=== PATIENT | male | born 1960 | race Caucasian/White ===

== ENCOUNTER 2016-12-28 00:17 | Emergency (ER) | payer MEDICAID ==
[~2016-12-28] VITALS: Ht 172.7 cm; Wt 62.3 kg
[2016-12-28 00:21] VITALS: BP 178/111
[2016-12-28] MEDS ORDERED: CYCLOBENZAPRINE 10 MG TABLET ONE (01:09)
[2016-12-28] MEDS ORDERED: KETOROLAC 30 MG/1 ML ONE (01:09)
[2016-12-28] MEDS ORDERED: CYCLOBENZAPRINE 10 MG TABLET PO SCH (01:30)
[2016-12-28] MEDS ORDERED: KETOROLAC 30 MG/1 ML IM ONE (01:30)
== END 2016-12-28 01:38 | disposition home or self-care (01) ==
LOC: ED 00:30
DX: S16.1XXA Strain of muscle, fascia and tendon at neck level, initial encounter (principal); S46.911A Strain of unspecified muscle, fascia and tendon at shoulder and upper arm level, right arm, initial encounter; S29.012A Strain of muscle and tendon of back wall of thorax, initial encounter; I10 Essential (primary) hypertension; F17.200 Nicotine dependence, unspecified, uncomplicated; X58.XXXA Exposure to other specified factors, initial encounter; Y93.89 Activity, other specified; Y92.89 Other specified places as the place of occurrence of the external cause; Y99.8 Other external cause status
CPT/HCPCS: 96372; 99283; J1885

== ENCOUNTER 2017-04-13 01:46 | Emergency (ER) | payer MEDICAID ==
[~2017-04-13] VITALS: BP 148/100; Ht 162.6 cm; Wt 65.8 kg
== END 2017-04-13 02:53 | disposition home or self-care (01) ==
LOC: ED 02:47
DX: R20.2 Paresthesia of skin (principal); I10 Essential (primary) hypertension; F15.10 Other stimulant abuse, uncomplicated; F41.9 Anxiety disorder, unspecified
CPT/HCPCS: 99281

== ENCOUNTER 2017-07-08 23:53 | Emergency (ER) | payer MEDICAID ==
[~2017-07-08] VITALS: Ht 162.6 cm; Wt 59.7 kg
[2017-07-09] MEDS ORDERED: ONDANSETRON ODT 4 MG ONE (00:14)
[2017-07-09] MEDS ORDERED: MAALOX/HYOSCYAMINE/LIDOCAINE 45 ML BTL ONE (00:14)
[2017-07-09 00:29] LABS: BASOPHILS # (AUTO) 0.02 x10^3/uL (0-0.1); BASOPHILS % (AUTO) 0 % (0-1); EOSINOPHILS # (AUTO) 0.17 x10^3/uL (0-0.4); EOSINOPHILS % (AUTO) 3 % (1-7); LYMPHOCYTES # (AUTO) 1.46 x10^3/uL (1-3.4); LYMPHOCYTES % (AUTO) 28 % (22-44); MD NO; MEAN CORPUSCULAR HGB CONC 33.9 g/dL (33.2-36.2); MEAN CORPUSCULAR VOLUME 97.5 fL (81-97); MEAN PLATELET VOLUME 9.4 fL (7.4-10.4); MONOCYTES # (AUTO) 0.54 x10^3/uL (0.2-0.8); MONOCYTES % (AUTO) 10 % (2-9); NEUTROPHILS # (AUTO) 3.08 x10^3/uL (1.8-6.8); NEUTROPHILS % (AUTO) 59 % (42-75); PLATELET COUNT 196 x10^3/uL (130-400); RED BLOOD COUNT 4.38 x10^6/uL (4.38-5.82); RED CELL DISTRIBUTION WIDTH 13.3 % (9.4-14.8)
[2017-07-09] MEDS ORDERED: ONDANSETRON ODT 4 MG PO ONE (00:30)
[2017-07-09] MEDS ORDERED: MAALOX/HYOSCYAMINE/LIDOCAINE 45 ML BTL PO ONE (00:30)
[2017-07-09 00:35] LABS: ALANINE AMINOTRANSFERASE 54 U/L (12-78); ALBUMIN 2.8 g/dL (3.4-5.0); ANION GAP 7 mmol/L (5-15); CALCIUM 8.7 mg/dL (8.5-10.1); CHLORIDE 109 mmol/L (98-107); CREATININE 0.99 mg/dL (0.7-1.3)
[2017-07-09 00:38] LABS: ALKALINE PHOSPHATASE 64 U/L (45-117); BILIRUBIN,TOTAL 0.6 mg/dL (0.2-1.0); TOTAL PROTEIN 6.7 g/dL (6.4-8.2)
[2017-07-09 01:39] VITALS: BP 131/78
== END 2017-07-09 01:46 | disposition home or self-care (01) ==
LOC: ED 23:59
DX: K52.29 Other allergic and dietetic gastroenteritis and colitis (principal); Z72.89 Other problems related to lifestyle; I10 Essential (primary) hypertension; F17.200 Nicotine dependence, unspecified, uncomplicated; Z88.8 Allergy status to other drugs, medicaments and biological substances
CPT/HCPCS: 36415; 80053; 83690; 85025; 99284; Q0162

== ENCOUNTER 2017-09-27 05:16 | Emergency (ER) | payer MEDICAID ==
[~2017-09-27] VITALS: Ht 162.6 cm; Wt 58.3 kg
[~2017-09-27 05:16] MED LIST: CEPH-368 PO; IBUP-1222 PO
[2017-09-27 05:18] VITALS: BP 166/101
[2017-09-27] MEDS ORDERED: MAALOX/HYOSCYAMINE/LIDOCAINE 45 ML BTL PO ONE (05:30)
[2017-09-27] MEDS ORDERED: LORazepam 1MG TABLET PO ONE (05:30)
[2017-09-27] MEDS ORDERED: ONDANSETRON ODT 4 MG PO ONE (05:30)
[2017-09-27] MEDS ORDERED: ONDANSETRON ODT 4 MG ONE (05:44)
[2017-09-27] MEDS ORDERED: MAALOX/HYOSCYAMINE/LIDOCAINE 45 ML BTL ONE (05:45)
[2017-09-27] MEDS ORDERED: LORazepam 1MG TABLET ONE (05:45)
[2017-09-27 05:54] LABS: MICROSCOPIC AUTO
[2017-09-27 06:00] LABS: CULTURE INDICATED? YES
[2017-09-27 06:05] LABS: BASOPHILS # (AUTO) 0.08 x10^3/uL (0-0.1); BASOPHILS % (AUTO) 1 % (0-1); EOSINOPHILS # (AUTO) 0.25 x10^3/uL (0-0.4); EOSINOPHILS % (AUTO) 3 % (1-7); LYMPHOCYTES # (AUTO) 3.66 x10^3/uL (1-3.4); LYMPHOCYTES % (AUTO) 49 % (22-44); MD NO; MEAN CORPUSCULAR HEMOGLOBIN 33.3 pg (27.5-34.5); MEAN CORPUSCULAR HGB CONC 34.1 g/dL (33.2-36.2); MEAN CORPUSCULAR VOLUME 97.6 fL (81-97); MEAN PLATELET VOLUME 8.9 fL (7.4-10.4); MONOCYTES # (AUTO) 0.59 x10^3/uL (0.2-0.8); MONOCYTES % (AUTO) 8 % (2-9); NEUTROPHILS # (AUTO) 2.95 x10^3/uL (1.8-6.8); NEUTROPHILS % (AUTO) 39 % (42-75); PLATELET COUNT 197 x10^3/uL (130-400); RED CELL DISTRIBUTION WIDTH 13.8 % (9.4-14.8)
[2017-09-27 06:15] LABS: ALANINE AMINOTRANSFERASE 65 U/L (12-78); ALBUMIN 3.1 g/dL (3.4-5.0); ANION GAP 6 mmol/L (5-15); CALCIUM 8.6 mg/dL (8.5-10.1); CHLORIDE 108 mmol/L (98-107); CREATININE 0.83 mg/dL (0.7-1.3)
[2017-09-27 06:18] LABS: ALKALINE PHOSPHATASE 67 U/L (45-117); BILIRUBIN,TOTAL 0.5 mg/dL (0.2-1.0); TOTAL PROTEIN 6.6 g/dL (6.4-8.2)
[2017-09-27] MEDS ORDERED: MORPHINE SULFATE 4 MG/ML, 1ML IVPush PRN (06:30)
[2017-09-27] MEDS ORDERED: KETOROLAC 30 MG/1 ML IVPush ONE (06:30)
[2017-09-27] MEDS ORDERED: SODIUM CHLORIDE FLUSH 10ML SYR IVF ONE (06:30)
[2017-09-27] MEDS ORDERED: MORPHINE SULFATE 4 MG/ML, 1ML ONE (06:38)
[2017-09-27] MEDS ORDERED: KETOROLAC 30 MG/1 ML ONE (06:38)
== END 2017-09-27 08:07 | disposition home or self-care (01) ==
LOC: ED 07:34
DX: R31.29 Other microscopic hematuria (principal); R10.84 Generalized abdominal pain; I10 Essential (primary) hypertension
CPT/HCPCS: 36415; 74176; 80053; 81001; 83690; 85025; 87086; 93005; 96374; 96375; 99285; J1885; Q0162

== ENCOUNTER 2017-12-20 13:38 | Emergency (ER) | payer MEDICAID ==
[~2017-12-20] VITALS: Ht 167.6 cm; Wt 60.0 kg
[2017-12-20] MEDS ORDERED: SODIUM CHLORIDE 0.9% 1,000 ML IV ONE (14:16)
[2017-12-20] MEDS ORDERED: SODIUM CHLORIDE 0.9% 1,000ML IVBOLUS ONE (14:30)
[2017-12-20 14:53] VITALS: BP 101/73
== END 2017-12-20 16:51 | disposition home or self-care (01) ==
LOC: ED 16:13
DX: F10.120 Alcohol abuse with intoxication, uncomplicated (principal); I10 Essential (primary) hypertension
CPT/HCPCS: 99284; J7030

== ENCOUNTER 2019-06-16 19:25 | Emergency (ER) | payer OTHER, MEDICAID ==
[~2019-06-16] VITALS: Ht 162.6 cm; Wt 63.7 kg
[2019-06-16 19:33] VITALS: BP 143/105
[2019-06-16] MEDS ORDERED: NEOSPORIN OINT. PKT 1 PACKET ONE (20:00)
[2019-06-16] MEDS ORDERED: hydrOXyzine 50MG TABLET PO ONE (20:00)
[2019-06-16] MEDS ORDERED: BACITRACIN ZINC OINT 500U/GM, 0.9 GM TP ONE (20:00)
--- NOTE | 2019-06-16 20:35 | NUR ---
this tech triaged/roomed pt
== END 2019-06-16 20:40 | disposition home or self-care (01) ==
LOC: ED 20:20
DX: S00.212A Abrasion of left eyelid and periocular area, initial encounter (principal); S00.81XA Abrasion of other part of head, initial encounter; F15.10 Other stimulant abuse, uncomplicated; I10 Essential (primary) hypertension; X58.XXXA Exposure to other specified factors, initial encounter; Y93.89 Activity, other specified; Y92.009 Unspecified place in unspecified non-institutional (private) residence as the place of occurrence of the external cause; Y99.8 Other external cause status
CPT/HCPCS: 99283

== ENCOUNTER 2019-10-11 22:28 | Emergency (ER) | payer MEDICAID, OTHER ==
[~2019-10-11] VITALS: Ht 170.2 cm; Wt 63.0 kg
--- NOTE | 2019-10-11 22:45 | NUR ---
DARRELL FROM [place], ON LEGAL HOLD FOR [employer], REPORTS PLAN TO "PLAY IN TRAFFIC AND TAKE MANAGER CORPORATE STRATEGY OF HEROIN TO OD", PT REPORTS VISUAL AND AUDIO HALLUCINATIONS. SAFETY OF ROOM ENSURED, GARAGE DOORS DOWN, PT ON VIDEO MONITORING, HALF SOLE FITTER AWARE. PT BELONGINGS COLLECTED AND LOCKED IN CABINET, PT CHANGED INTO GOWN AND PROVIDED URINE SAMPLE.
[2019-10-11 23:18] LABS: AMPHETAMINE SCREEN, URINE Positive (Negative); BARBITURATE SCREEN, URINE Negative (Negative); BENZODIAZEPINE SCREEN, URINE Negative (Negative); CANNABINOID SCREEN, URINE Negative (Negative); COCAINE SCREEN, URINE Negative (Negative); METHADONE SCREEN, URINE Negative (Negative); OPIATE SCREEN, URINE Negative (Negative)
[2019-10-11 23:28] LABS: BASOPHILS # (AUTO) 0.04 x10^3/uL (0-0.1); BASOPHILS % (AUTO) 1 % (0-1); EOSINOPHILS # (AUTO) 0.16 x10^3/uL (0-0.4); EOSINOPHILS % (AUTO) 2 % (1-7); LYMPHOCYTES # (AUTO) 2.67 x10^3/uL (1-3.4); LYMPHOCYTES % (AUTO) 34 % (22-44); MD NO; MEAN CORPUSCULAR HEMOGLOBIN 32.7 pg (27.5-34.5); MEAN CORPUSCULAR HGB CONC 33.3 g/dL (33.2-36.2); MEAN CORPUSCULAR VOLUME 98.2 fL (81-97); MEAN PLATELET VOLUME 9.1 fL (7.4-10.4); MONOCYTES # (AUTO) 0.57 x10^3/uL (0.2-0.8); MONOCYTES % (AUTO) 7 % (2-9); NEUTROPHILS # (AUTO) 4.41 x10^3/uL (1.8-6.8); NEUTROPHILS % (AUTO) 56 % (42-75); PLATELET COUNT 225 x10^3/uL (130-400); RED BLOOD COUNT 4.77 x10^6/uL (4.38-5.82); RED CELL DISTRIBUTION WIDTH 13.4 % (9.4-14.8)
--- NOTE | 2019-10-11 23:30 | NUR ---
PT RESTING COMFORTABLY IN [facility] WITH EYES CLOSED, PT STATES HE "IS DOING WELL" AND HAS NO FURTHER REQUESTS AT THIS TIME
[2019-10-11 23:37] LABS: ALANINE AMINOTRANSFERASE 83 U/L (12-78); ALBUMIN 3.3 g/dL (3.4-5.0); ANION GAP 7 mmol/L (5-15); CALCIUM 8.5 mg/dL (8.5-10.1); CHLORIDE 107 mmol/L (98-107); CREATININE 1.31 mg/dL (0.7-1.3)
[2019-10-11 23:38] LABS: SALICYLATE LEVEL < 1.7 mg/dL (2.8-20.0)
--- NOTE | 2019-10-11 23:39 | NUR ---
REPORT TO HIEN TO ASSUME CARE, TRANSFERING PT TO ED ROOM 3
[2019-10-11 23:48] LABS: ALKALINE PHOSPHATASE 84 U/L (45-117); BILIRUBIN,TOTAL 0.8 mg/dL (0.2-1.0); TOTAL PROTEIN 7.3 g/dL (6.4-8.2)
--- NOTE | 2019-10-11 23:58 | NUR ---
REPORT OF PT FROM KHLOE MACDONALD AND ASSUMING CARE OF PT AT THIS TIME. PT MOVED FROM ER 38 TO ER 03 AT THIS TIME. DIRECT OBSERVATION OF PT FROM SITTER AT THIS TIME.
[2019-10-12 00:01] LABS: FREE T4 (FREE THYROXINE) 0.94 ng/dL (0.76-1.46)
--- NOTE | 2019-10-12 00:49 | NUR ---
PT ASLEEP IN [facility] AT THIS TIME; JEFF. SITTER OUTSIDE OF ROOM FOR DIRECT OBSERVATION OF PT.
--- NOTE | 2019-10-12 01:45 | NUR ---
PT ASLEEP IN [facility] AT THIS TIME WITH SITTER OUTSIDE OF PT ROOM FOR DIRECT OBSERVATION OF PT.
--- NOTE | 2019-10-12 02:58 | NUR ---
PT RESTING IN [facility] AT THIS TIME; JEFF. SITTER OUTSIDE OF ROOM FOR DIRECT OBSERVATION OF PT.
--- NOTE | 2019-10-12 03:53 | NUR ---
meal tray ordered for pt at this time. pt resting calmy in gurney; pablo. sitter outside of pt room for direct observation of pt.
[2019-10-12] MEDS ORDERED: LEVOTHYROXINE 75 MCG TABLET PO ONE (03:56)
--- NOTE | 2019-10-12 04:52 | NUR ---
PT RESTING IN [facility] AT THIS TIME; JEFF. SITTER OUTSIDE OF PT ROOM FOR DIRECT OBSERVATION OF PT AT THIS TIME.
--- NOTE | 2019-10-12 05:33 | NUR ---
PT ASLEEP IN [facility] AT THIS TIME; JEFF. SITTER OUTSIDE OF PT ROOM FOR DIRECT OBSERVATION OF PT.
[2019-10-12 06:28] VITALS: BP 114/87
--- NOTE | 2019-10-12 06:50 | NUR ---
REPORT OF PT TO KHLOE CARNEY. ALL QUESTIONS ANSWERED.
--- NOTE | 2019-10-12 07:00 | NUR ---
REPORT RECIEVED FROM HIEN RN, PT RESTING ON [employer] AT THIS TIME, AOX4, MEAL TRAY ORDERED. NO NEEDS AT THIS TIME
--- NOTE | 2019-10-12 09:00 | NUR ---
PT RESTING ON [place], AOX4, PT HAVING CONVERSATION WITH SELF. PT DENIES AUD HALLUCINATIONS ALTHOUGH FREQUENTLY TALKING OUTLOUD TO SELF. SITTER IN PLACE NO OTHER NEEDS
--- NOTE | 2019-10-12 11:09 | NUR ---
REPORT GIVEN TO VIMAL LEDBETTER AT [facility], AWAITING TRANSPORT
== END 2019-10-12 12:40 ==
LOC: ED 10-12 02:55
DX: F32.0 Major depressive disorder, single episode, mild (principal); F15.151 Other stimulant abuse with stimulant-induced psychotic disorder with hallucinations; E03.4 Atrophy of thyroid (acquired); E03.9 Hypothyroidism, unspecified; I10 Essential (primary) hypertension; F17.200 Nicotine dependence, unspecified, uncomplicated; Z72.9 Problem related to lifestyle, unspecified
CPT/HCPCS: 36415; 80053; 80307; 84439; 84443; 85025; 99284

== ENCOUNTER 2020-11-04 20:27 | Emergency (ER) | payer MEDICAID ==
[~2020-11-04] VITALS: Ht 167.6 cm; Wt 72.7 kg
[2020-11-04 20:41] VITALS: BP 138/84
== END 2020-11-04 22:36 | disposition home or self-care (01) ==
LOC: ED 21:25
DX: S80.12XA Contusion of left lower leg, initial encounter (principal); L03.116 Cellulitis of left lower limb; X58.XXXA Exposure to other specified factors, initial encounter; Y93.89 Activity, other specified; Y92.89 Other specified places as the place of occurrence of the external cause; Y99.8 Other external cause status
CPT/HCPCS: 36415; 80053; 83605; 85025; 87040; 96365; 99284; J0690